=== PATIENT | female | born 1990 | race Caucasian/White ===

== ENCOUNTER 2020-07-13 05:01 | Inpatient (IN) | payer OTHER, SELFPAY ==
[2020-07-13] VITALS (125 sets, daily range): BP systolic 82–124; BP diastolic 50–84; PULSE 67–184; RESP 13–16; TEMP 36.2–36.9; O2SAT 97–100; BMI 23.4
--- NOTE | 2020-07-13 05:17 | LDADM ---
This patient, Silvia Moser, was admitted to Labor/Delivery/Recovery 102 on 07/13/20 at 05:01. Plans for labor, pain management and were discussed with patient. Patient/family oriented to hospital policies and general routines including ID bracelet, bed and alarms, visiting hours, pain management, procedures, bathroom and other care routines, personal items, smoking policy, room service/diet and guest tray routines, infant security routines, and visiting hours. Patient/Family are encouraged to report perceived risks to care and to ask questions if they do not understand what they are told or what they should do. See OBIX for further documentation.
[2020-07-13 05:42] LABS: Basophils Percent Auto 0.4 % (0.2-1.2); Eosinophils Absolute Auto 0.1 K/mm3 (0-0.3); Eosinophils Percent Auto 0.7 % (0-4.4); Hemoglobin 12.4 g/dL (12.0-15.0); Immature Granulocyte Absolute 0.12 K/mm3 (0.00-0.031); Immature Granulocyte Percent A 1.1 % (0-0.5); Lymphocytes Absolute Auto 2.63 K/mm3 (0.9-3.2); Lymphocytes Percent Auto 23.4 % (18.3-44.2); Mean Corpuscular HGB Conc 34.4 g/dl (32-36); Mean Corpuscular Hemoglobin 31.2 pg (26-34); Mean Corpuscular Volume 90.7 fl (80-100); Mean Platelet Volume 11.9 fl (7.4-10.4); Monocytes Absolute Auto 0.8 K/mm3 (0.1-0.6); Monocytes Percent Auto 7.3 % (2.6-8.5); Neutrophils Absolute Auto 7.6 K/mm3 (1.3-6.7); Neutrophils Percent Auto 67.1 % (45.5-73.1); Platelet Count Result 193 k/mm3 (150-375); Red Blood Count 3.97 M/mm3 (4.2-5.4); Red Cell Distribution Width 12.4 % (11.5-14.5); White Blood Count 11.3 K/mm3 (4.5-10.0)
[2020-07-13] MEDS: LACTATED RINGERS 1,000 ML 125 ML IV CONT ×2 (08:25→09:10)
--- NOTE | 2020-07-13 08:40 | WPDANESEPP ---
Anes - Eval Pre Procedure Procedure: labor epidural Date/Time: 07/13/20 08:40 Preop Diagnosis: labor pain Pre Op Diagnosis: IOL Patient Data Age: 30 Gender: F Height: 5 ft 4 in Weight: 62 kg Last Vital Signs Temp 36.5 C 07/13/20 05:34 Pulse 104 H 07/13/20 08:31 BP 111/84 07/13/20 08:31 Allergies Allergy/AdvReac Type Severity Reaction Status Date / Time No Known Allergies Allergy Verified 06/20/20 12:31 Home Medications Medication Instructions Recorded Confirmed Type PNV cmb#95-ferrous fumarate-FA 1 tablet PO DAILY 06/20/20 06/20/20 History [] lnougxo-qablhezra-itou 1 tablet PO BID 06/20/20 07/13/20 History cholecalciferol (vitamin D3) 25 mcg PO DAILY 06/20/20 06/20/20 History [Vitamin D3] docusate sodium [Colace] 200 mg PO BID PRN 06/20/20 06/20/20 History ergocalciferol (vitamin D2) 1,250 mcg PO WEEKLY 06/20/20 06/20/20 History [Vitamin D2] Laboratory Tests 07/13/20 07/13/20 07/13/20 05:31 05:31 05:31 WBC 11.3 K/mm3 H K/mm3 (4.5-10.0) RBC 3.97 M/mm3 L M/mm3 (4.2-5.4) Hgb 12.4 g/dL g/dL (12.0-15.0) Hct 36.0 % L % (37.0-47.0) MCV 90.7 fl fl (80-100) MCH 31.2 pg pg (26-34) MCHC 34.4 g/dl g/dl (32-36) RDW 12.4 % % (11.5-14.5) Plt Count 193 k/mm3 k/mm3 (150-375) MPV 11.9 fl H fl (7.4-10.4) Immature Gran % (Auto) 1.1 % H % (0-0.5) Neut % (Auto) 67.1 % % (45.5-73.1) Lymph % (Auto) 23.4 % % (18.3-44.2) [place] % (Auto) 7.3 % % (2.6-8.5) Eos % (Auto) 0.7 % % (0-4.4) Baso % (Auto) 0.4 % % (0.2-1.2) Lymph # (Auto) 2.63 K/mm3 K/mm3 (0.9-3.2) [place] # (Auto) 0.8 K/mm3 H K/mm3 (0.1-0.6) Eos # (Auto) 0.1 K/mm3 K/mm3 (0-0.3) Baso # (Auto) 0.0 K/mm3 K/mm3 (0.0-0.1) Abs Immat Gran (auto) 0.12 K/mm3 H K/mm3 (0.00-0.031) Absolute Neuts (auto) 7.6 K/mm3 H K/mm3 (1.3-6.7) Absolute Nucleated RBC 0.0 K/mm3 K/mm3 (0.0-0.012) Nucleated RBC % 0.0 % % (0.0-0.2) RPR Pending Blood Type O Positive Antibody Screen Negative Patient hx anesthesia problems: none Family hx anesthesia problems: none [facility] Family History Family History (Updated 06/20/20 @ 12:34 by Bebeto Alexandra RN) Father Heart disease High cholesterol Social History Social History Smoking status: Never smoker Second hand tobacco smoke exposure: No Substance use: never Gender identity (if verbalized by the patient): Female Spiritual care concerns: No Exam Day of Procedure 07/13/20 08:40
--- NOTE | 2020-07-13 09:04 | WPDOBADMIT ---
Obstetrics - Admit Note Admission Note: AROM clear fluid /-2 . vertex by ultrasound record reviewed. No pertinent additions to the history and/or any subsequent changes in the physical findings that are not consistent with the expected course of the were found. Additions to the history and/or subsequent changes in the physical findings follow. None.
[2020-07-13] MEDS: ONDANSETRON INJ 4 MG/2 ML VIAL IV PUSH (09:36)
[2020-07-13 10:03] LABS: Rapid Plasma Reagin Non-Reactive (NonReactive)
[2020-07-13] MEDS: OXYTOCIN 30 UNITS/NS 500 ML 30 UNITS/500 ML BAG IV CONT (13:40)
--- NOTE | 2020-07-13 14:02 | PM.OBPRVD ---
OB - Delivery Note Procedure Delivery date: 07/13/20 Procedure: events: Labor Induction Intrapartal events: None Induction method: AROM Delivery monitor: external FHT and external uterine Route of delivery: Laceration description: Perineal - 2nd Degree Delivery repair: vicryl Specimen: No Estimated blood loss (mL): 350 Anesthesia type: Epidural Disposition: floor [place] Baby Time of : 13:34 Weeks of gestation at delivery: 39 Infant gender: Male
[2020-07-13] MEDS: OXYTOCIN 30 UNITS/NS 500 ML 30 UNITS/500 ML BAG 125 UNITS IV CONT (14:13)
[2020-07-13] MEDS: IBUPROFEN 600 MG TABLET PO ×2 (15:47→21:16)
[2020-07-13] MEDS: WITCH HAZEL 40 PADS 1 PAD TOPICAL (15:48)
[2020-07-13] MEDS: BENZOCAINE 20% AER SPR (*SP) 56 GM CAN 1 SPRAY TOPICAL (15:48)
--- NOTE | 2020-07-13 19:05 | PC.NURSE ---
Patient transferred to post room #277 via wheelchair. Support person present. Oriented to unit, room, information board, rooming in, admission packet and security measures. Patient verbalizes understanding.
[2020-07-14] MEDS: IBUPROFEN 600 MG TABLET PO ×3 (04:03→20:12)
[2020-07-14 05:42] LABS: Hematocrit 24.2 % (37.0-47.0); Hemoglobin 8.1 g/dL (12.0-15.0)
[2020-07-14 07:45] VITALS: BP 99/64; PULSE 70; RESP 18; TEMP 36.2
[2020-07-14] MEDS: MULTIVIT/MIN/PREN/FOL AC/IRON TABLET 1 TAB PO (08:14)
[2020-07-14] MEDS: POLYSACCHARIDE IRON COMPLEX 150 MG CAPSULE PO ×2 (08:14→16:25)
[2020-07-14] MEDS: DOCUSATE SODIUM 100 MG CAPSULE 200 MG PO ×2 (08:15→16:24)
[2020-07-14] MEDS: CHOLECALCIFEROL 1,000 UNITS TABLET 1000 UNITS PO (08:16)
--- NOTE | 2020-07-14 09:30 | WPDANLDPN2 ---
Anes-Prog Note L&D Date/Time: 07/14/20 09:30 Comfortable throughout: labor and delivery Neuraxial method: epidural Epidural/Spinal procedure site: clean & non-tender Neuro status: Neuro function grossly intact. Cardiovascular status: normal Respiratory status: normal Airway patency: baseline Mental status: baseline Post-Op hydration status: normal Vital Signs: Last Vital Signs Temp 36.8 C 07/13/20 18:55 Pulse 81 07/13/20 18:55 Resp 13 07/13/20 18:55 BP 88/54 L 07/13/20 18:55 Pulse Ox 98 07/13/20 18:55 Pain score (VAS): 0/10 Post-procedural complaints: none Patient feedback: Patient satisfied with anesthetic care.
--- NOTE | 2020-07-14 12:38 | PM.OBPNVD ---
OB - PN: Subj Subjective Date/time seen: 07/14/20 12:38 S: doing okay reports a lot of cramping overnight OB - PN: Obj Data Labs CBC & Chem 7: 07/14/20 04:15 Labs: Laboratory Results - last 24 hr 07/14/20 04:15 Hgb 8.1 L D Hct 24.2 L OB - PN A/P Assessment and Plan (1) (normal spontaneous vaginal delivery): Code(s): O80 - Encounter for full-term uncomplicated delivery Status: Acute Assessment and Plan: continue with pp care. Time Spent With Patient Time: Total time spent is greater than 50% in coordination of care (as documented) at patient's floor/unit and/or counseling patient: Exam GI: Other: ff below umbilicus
--- NOTE | 2020-07-14 14:15 | PC.NURSE ---
Upon entering mother has to breast in cradle. Mother states has been sleepy and not opening wide for deep latch causing some tenderness. Infant will suckle for a burst and fall asleep. Discussed possible tongue tie and how this may impact latch and empting the breast, reviewed frenulum is freq stretched with feeding and may not impact feeding as long as can empty breast and mother not have discomfort. Demonstrated stimulation techniques to wake infant for feeding. Suggested cross cradle. Reviewed positioning/alignment in cross cradle, holding breast in U hold and guided asymmetrical latch on. Discussed rational for each. Infant was able to latch correctly. nursed eagerly, with steady draws and frequent swallowing noted, for short bursts with long pausing. Advised to stimulate during entire feeding to keep awake and nursing effectively for increased intake and to assist with maintaining deep latch. Reviewed signs of a correct latch, effective nursing and suck swallow ratio. was able to maintain latch without discomfort to mother. Nipple care reviewed. Reviewed infant feeding cues, frequencies, duration of feedings, feeding elimination flow sheet, and signs of adequate intake. Demonstrated how to adjust latch more deeply while feeding. Instructed mother to call out for RN assistance if she is unable to latch infant for feeding or she has discomfort with nursing. Instructed feeding should be initiated three hours from start of last feeding or if feeding cues are noted before. Mother voiced understanding of information shared. Consulted with patient,
[2020-07-14 21:09] VITALS: BP 88/49; PULSE 78; RESP 14; TEMP 36.8; O2SAT 100
[2020-07-15] MEDS: IBUPROFEN 600 MG TABLET PO ×2 (02:50→09:46)
[2020-07-15] MEDS: DOCUSATE SODIUM 100 MG CAPSULE 200 MG PO (08:07)
[2020-07-15] MEDS: MULTIVIT/MIN/PREN/FOL AC/IRON TABLET 1 TAB PO (08:09)
[2020-07-15] MEDS: POLYSACCHARIDE IRON COMPLEX 150 MG CAPSULE PO (08:10)
[2020-07-15] MEDS: CHOLECALCIFEROL 1,000 UNITS TABLET 1000 UNITS PO (08:10)
[2020-07-15 08:15] VITALS: BP 108/67; PULSE 80; RESP 18; TEMP 36.8; O2SAT 100
--- NOTE | 2020-07-15 08:34 | PC.NURSE ---
Patient viewed the discharge video Mother & Baby Care, The First Two Weeks . Patient was given the opportunity and encouraged to ask questions. Patient verbalized understanding of information shared and has been given the mother/baby guide for home reference.
--- NOTE | 2020-07-15 09:00 | PC.NURSE ---
Upon entering mother has independently latch with appropriate positioning/alignment. Mother states she feels her milk is transitioning in. She denies any nipple discomfort, is feeding as required and waking infant to feed if needed. has had at least 8 effective feedings in the past 24 hours, and is currently meeting outcomes for weight, output, jaundice and feeding frequencies. Infant is at 8% weight loss. Mother states she feels confident to continue effective at home. Stressed to wake to feed every 3 hours and stimulate while feeding to keep awake and nursing effectively. Reviewed transition to breast milk, signs of adequate intake, and engorgement/relief. Instructed to call ICP if intake/output less than required. Reviewed regular medications mother is taking. Information provided per Corrina. Reviewed community resources on the [facility] website and in the Mom/Baby guide. Information on outpatient services provided. Mother has no further questions at this time.
[2020-07-16 07:58] VITALS: BP 97/59; PULSE 86; RESP 16; TEMP 36.6; O2SAT 99
--- NOTE | 2020-07-25 11:04 | PM.OBDSVD ---
DS: Admitting Diagnosis Admitting Diagnosis Admitting Diagnosis: IOL DS: Discharge Diagnosis Discharge Diagnosis (1) (vaginal after ): Code(s): O34.219 - Maternal care for unspecified type scar from previous delivery Status: Acute OB - DS: Summary OB Procedures : None OB Procedures Intrapartum: OB Procedures: : None Time Spent with Patient Time attestation: Total time spent providing and/or coordinating discharge services: Discharge Plan Discharge Attending physician on discharge: Wiley Spencer Discharging Clinician: Wiley Spencer Patient Disposition: Home, Self-Care Activity: may shower, may drive after 2 weeks, as tolerated and pelvic rest Diet: regular Wound Care Instructions: incision open to air Discharge Instructions: Education: Mom and Baby Guide Given to: Mother Follow-Up: Call your delivering provider's office for an appointment to be seen in: Call for appointment [facility]. Appointment Date/Time: Saturday, July 16, 2020 at 8:00 a.m. What to expect at your follow-up visit: Blood Pressure Check Physical Assessment Call [phone] if you are unable to keep your appointment time. BREAST CARE: * Wear a snug supportive bra. * For engorgement discomfort: Breast Feeding: * Apply warm moist washcloths * Express milk as needed to relieve engorgement * Wear loose clothing * For sore nipples: * Identify correct latch-on * Apply warm moist washcloths before and after nursing * Air dry nipples after nursing * May apply Lansinoh cream to nipples EPISIOTOMY/PERINEAL CARE: * Until bleeding stops, use your josh bottle after urinating * Change your pad frequently throughout the day * You may take sitz baths several times a day (fill your bathtub with warm water and soak for 20 minutes.) Do NOT bathe in the water * No tub baths until seen by your physician - You may shower ACTIVITY: * Rest as much as possible. * Do not exercise or lift anything heavier than your baby (such as laundry or other children.) * Avoid stairs or driving as much as possible. * Do not put anything into the vagina. No douching, tampons, or sexual activity until seen by physician. NOTIFY PHYSICIAN IF YOU HAVE ANY QUESTIONS OR IF ANY OF THE FOLLOWING SYMPTOMS OCCUR: * If your perineum becomes red, swollen, or more painful than what you have experienced in the hospital. * If your vaginal bleeding becomes foul smelling. * If your vaginal bleeding becomes more heavy than a period or if your bleeding changes from pink to bright red. However, you may pass an occasional walnut-sized clot once or twice for the first week . * If you experience a sharp, shooting pain in you calves. * If you discover a hard, reddened area on your breast or if you experience flu-like symptoms. DIET: * Eat regular, well-balanced meals. * Drink plenty of fluids daily. If , drink to thirst. Stand Alone Forms: General Discharge Information Follow-up/Referrals: Wiley Spencer MD [Physician] - Discharge Medications: New hydrocodone-acetaminophen 5-325 mg Tablet 1 tab PO Q3H PRN (Reason: Pain Rated 4-6) Qty: 10 RF: 0 ibuprofen 600 mg Tablet 600 mg PO Q6H PRN (Reason: Cramping) Qty: 60 RF: 0 norethindrone (contraceptive) [Ortho Micronor] 0.35 mg tablet 0.35 mg PO DAILY Qty: 28 RF: 12 Continued docusate sodium [Colace] 100 mg Capsule 200 mg PO BID PRN (Reason: Constipation) RF: 0 ergocalciferol (vitamin D2) [Vitamin D2] 1,250 mcg (50,000 unit) Capsule 1,250 mcg PO WEEKLY RF: 0 msejzci-nskbpwbal-amfn 333-133-5 mg Tablet 1 tablet PO BID RF: 0 cholecalciferol (vitamin D3) [Vitamin D3] 25 mcg (1,000 unit) Tablet 25 mcg PO DAILY RF: 0 PNV cmb#
== END 2020-07-15 10:45 | disposition home or self-care (01) | DRG 807 ==
LOC: ANHLDR 05:05 → ANHOB2 17:22
PROVIDERS: Admitting Provider Obstetrics & Gynecology; Visit Provider Obstetrics & Gynecology
DX: O70.1 Second degree perineal laceration during delivery (principal); Z37.0 Single live birth; Z3A.39 39 weeks gestation of pregnancy
CPT/HCPCS: 36415; 85014; 85018; 85025; 86592; 86850; 86900; 86901; A9270; J2405; J2590; J2795; J7120